=== PATIENT | male | born 2000 | race Caucasian/White ===

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

== ENCOUNTER 2023-04-07 16:12 | Emergency (ER) | payer OTHER, SELFPAY ==
[2023-04-07 16:16] VITALS: BP 142/72; PULSE 80; RESP 17; TEMP 37; O2SAT 98; BMI 25.0
--- NOTE | 2023-04-07 16:25 | ED.ALLEREA ---
HPI - Allergic Reaction General Chief complaint: Allergic Reaction Stated complaint: Bee sting Right eye and torso... Time Seen by Provider: 04/07/23 16:16 Source: patient Mode of arrival: Ambulatory History of Present Illness HPI narrative: 22-year-old male nonsmoker with noncontributory chronic medical history presents for evaluation of multiple bee stings. He states that he was out using a weed whacker when he apparently aggravated and nest and was stung in his right armpit, left lower back and right eyebrow. This happened about 3-4 hours ago and he is starting to develop some swelling of his right upper lid. He denies any vision change and states he did not get stung in his eye itself. He denies any blurring of vision. Denies any systemic complaints such as nausea, vomiting. He has no trouble breathing or wheezing. He has no urticaria or rash. Denies any previous history of anaphylaxis Related Data Previous Rx's Medication Instructions Recorded cephalexin 500 mg capsule (Keflex) 500 mg PO Q12H #21 caps 02/05/18 ondansetron 4 mg disintegrating 4 mg PO Q6-8H PRN nausea and 02/05/18 tablet (Zofran ODT) vomiting #5 tabs Allergies Allergy/AdvReac Type Severity Reaction Status Date / Time No Known Drug Allergies Allergy Verified 04/07/23 16:15 Review of Systems Review of Systems Narrative: GENERAL: Denies chills, fatigue, malaise, fever, sweats. HEENT: See HPI RESPIRATORY: Denies dyspnea, cough, wheezing, hemoptysis, sputum. CARDIOVASCULAR: Denies chest pain, palpitations, orthopnea, edema, GASTROINTESTINAL: Denies nausea, vomiting, abdominal pain, diarrhea, constipation, melena. : Denies dysuria, frequency, incontinence, hematuria, urinary retention. MUSCULOSKELETAL: denies weakness, joint pain, or bony pain SKIN: See HPI NEUROLOGIC: Denies weakness, headache, numbness, change in speech, confusion, seizures, incoordination. PSYCHIATRIC: No concerning psychosocial issues. 12 point review of systems is negative except for those stated above Patient History Medical History Healthy adolescent Social History Smoking Status: Never smoker alcohol intake: never substance use type: does not use Smoking Status: Never smoker Substance Use Type: does not use Exam Narrative Exam Narrative: GEN: AOx3 and in mild distress EYES: Edema of upper lid is soft and nontender, no redness or induration, no evidence of a stinger, when edematous lid is retracted there is no erythema or watering of the eye, no change in vision. Pupils are equal, round, and reactive to light and accommodation. Extraoccular muscles are intact bilaterally. There is no subconjunctival hemorrhage or exudate. ENT: No tongue, lip or face swelling, no throat involvement, airway patent CHEST: Lungs are clear to auscultation bilaterally and free of wheezes, rales, or rhonchi. Heart rate is regular rhythm, there are no murmurs, clicks, rubs, or gallops. There is no chest wall tenderness. ABD: Abdomen is soft and nontender. There is no guarding or rebound. Bowel sounds are normal in all 4 quadrants. There is no mass or organomegaly. EXT: Full painless ROM of all extremities with no loss of sensation or strength. SKIN: Warm, pink, and dry. No erythema or rash Initial Vital Signs Initial Vital Signs: Vital Signs Temperature 98.6 F 04/07/23 16:16 Pulse Rate 80 04/07/23 16:16 Respiratory Rate 17 04/07/23 16:16 Blood Pressure 142/72 H 04/07/23 16:16 Pulse Oximetry 98 04/07/23 16:16 Oxygen Delivery Method Room Air 04/07/23 16:16 Course Vital Signs Vital signs: Vital Signs - 8 hr 04/07/23 16:16 Temperature 98.6 F Pulse Rate 80 Respiratory Rate 17 Blood Pressure 142/72 H Pulse Oximetry 98 Oxygen Delivery Method Room Air MDM - Allergic Reaction MDM Narrative Medical decision making narrative: [22] year old patient presents with bee stings in local reaction only, no systemic complaints Multiple etiologies for patient's symptoms considered including, but not limited to: [Allergic reaction versus local reaction versus other] Prior Charts reviewed in our EMR Primary Historian: patient Patient with reassuring history and physical exam with swelling of right upper lid after bee sting. No change in vision, no systemic complaints, no signs of anaphylaxis, no indication for further treatment at this time. Patient given reassurance and encouraged to continue the use of anti-inflammatories, potentially an ice bag for the next 24 hours. Patient given return precautions which include but are not limited to facial swelling, tongue, lip or throat involvement, difficulty swallowing or breathing or any other concerning symptoms Findings and discharge diagnosis discussed with patient/family followed by verbalization of understanding Return precautions discussed with patient/family whom verbalize understanding of diagnosis and plan Discharge Plan Departure Patient Disposition: Home Clinical Impression: Bites and stings, insect Instructions: DI for Insect Bites and Stings Activity Restrictions/Additional Instructions: *You have been diagnosed with [bee stings with local reaction. As we discussed there is no evidence of an allergic reaction and this should improve over the next few days. Use of Tylenol, Motrin and ice packs can be helpful.] *What to do: *Please continue to take your regular medications as directed. [ ] New medication prescriptions sent to your pharmacy: [ ] [ ] New medication written as a paper prescription [ ] No new medications given *Please follow up with your primary care provider in 2-3 days, call for an appointment. Let them know you were seen in the Emergency Department and that we ask that you be seen in follow up. We will electronically transmit a record of today's note if your PCP is in our system *If you do not have a primary care provider please contact the [facility] Resource line at [phone]. They will ask some questions about your medical history and help get you set up with a doctor in the community. *Return to Emergency Department if you should have any new, worsening or concerning symptoms, such as swelling of tongue, lip or throat, difficulty breathing, vomiting or other concerning symptoms Prescriptions: No Action ondansetron [Zofran ODT] 4 mg tablet,disintegrating 4 mg PO Q6-8H PRN (Reason: nausea and vomiting) Qty: 5 0RF cephalexin [Keflex] 500 mg capsule 500 mg PO Q12H Qty: 21 0RF Stand Alone Forms: Patient Portal/API
== END 2023-04-07 16:33 | disposition home or self-care (01) ==
PROVIDERS: Emergency Provider Emergency Medicine
DX: T63.441A Toxic effect of venom of bees, accidental (unintentional), initial encounter (principal)
CPT/HCPCS: 99281; 99282